=== PATIENT | female | born 1955 | race Caucasian/White ===

== ENCOUNTER → 2017-03-24 | Day surgery (SDC) | payer OTHER, MEDICARE ==
[~2017-03-24] VITALS: Ht 175.3 cm; Wt 52.2 kg
[~2017-03-24] MED LIST: 0.9% Sodium Chloride 1,000 ML IV SCH; ACET325T51 PO; AMLO10TA3 PO; FERR325C PO; Lactated Ringer's 1,000 ML IV ONE; METO-272 PO; OMEP20TA86 PO; Propofol 10,000 mCg/mL 20 mL Inj ONE; RANI150C4 PO; Sodium Chloride LOK Flush 10 mL Syringe IV PRN; fentaNYL-PF 50 mCg/mL 2 mL Inj IVPUSH PRN; fentaNYL-PF 50 mCg/mL 2 mL Inj ONE
[2017-03-24 15:19] VITALS: BP 128/69; PULSE 56; RESP 16; O2SAT 100
--- NOTE | 2017-03-24 16:01 | PCM.HPANE ---
Patient Data Surgeon Admitting Provider: Attending Provider:Rosanne Anguiano MD Primary Care Physician:Clinic,[facility] Residency Other Provider:Ramakrishna Vogt Anesthesia Reason for Visit Pyloric Stricture Ht/WT & BMI Height (Feet): 5 Height (Inches): 9 Weight (Kilograms): 52.2 Body Mass Index 17.00 Allergies Coded Allergies: Sulfa (Sulfonamide Antibiotics) (Verified Allergy, Unknown, 08/18/16) Uncoded Allergies: SULFA (Allergy, Unknown, N/V, 07/14/09) Past Anesthesia History Anesthesia History: Denies:: Abnormal Airway, Anesthesia Reactions, Difficult Intubation, Fam Anesthesia Reaction, Fam Malignant Hypertherm, Malignant Hyperthermia Diabetes History Hx Diabetes?: No MRSA MRSA: No Medications Home Meds Incl Beta Homer: Yes Date Beta Homer Taken: Mar 24, 2017 Time Beta Homer Taken: 0700 Reported Medications Metoprolol Succinate ER 50 Mg Tab.er.24h50 Mg PO BID Ref 0 07/27/16 Omeprazole 20 Mg Tablet.dr40 Mg PO DAILY 04/27/16 Acetaminophen 325 Mg Nevtaq048 Mg PO TID PRN For Pain Ref 0 04/21/16 Amlodipine 10 Mg Ktnvqo85 Mg PO DAILY Ref 0 04/20/16 Discontinued Reported Medications Ferrous Sulfate (Iron)325 Mg Capsule.er325 Mg PO TIDWM 08/18/16 Ranitidine 150 Mg Rlialup157 Mg PO HS Ref 0 07/27/16 History History of ENT Problems?: No HEENT History: Positive for:: Dysphagia Hearing Problem Denies:: Abnormal Airway Difficult Intubation Denture Type: None Teeth Condition: Within Normal Limits Hx of Heart Problems?: Yes Cardiovascular History: Positive for:: Hypertension Denies:: AICD Atrial Fibrillation Chest Pain Pacemaker Valvular Heart Disease Hx of Respiratory Problem?: No Respiratory History: Positive for:: Pneumonia (HX) Denies:: Asthma COPD Cough Hemoptysis Tuberculosis Hx Neurologic Problems?: No Neurological History: Denies:: CVA Hx of GI Problems?: Yes Hx of Problems?: Yes Female Hx: Denies:: Currently Hx Musculoskeletal Problems?: No Musculoskeletal History: Denies:: Fibromyalgia Joint Replacement Psycho Social History: Denies:: Anxiety Hx Depression Hx Surgeries?: Yes (HYSTERECTOMY,TONSILS) Hx Any Other Health Problems?: Yes Hx Diabetes: No Hx Alcohol Use: NoHx Substance Use: Yes Smoking Status: Light Tobacco Smoker Have You Smoked inLast 12 mo: Yes Stop/Bang Treated for Sleep Apnea?: No Do You Have a CPAP Machine?: No S-Snoring: Do You Snore Loudly: No T-Tired: feel tired, fatigued: No O-Obsered: Observed not breath: No P-Blood Pressure: treated: Yes B- Body Mass Index > 35 kg/m2: No A- Age over 50: Yes N- Neck Large Circumference: No G- Gender Male: No JAZZMINE Total Score: 2 Risk Assessment Category Category 1A: Patient has history of documented sleep apnea, and HAS NOT received any narcotic, sedative or anesthesia administration during this stay. Category 1B: Patient has history of documented sleep apnea, and HAS received any narcotic , sedative or anesthesia administration during this stay Category 2: Patient has SUSPECTED Obstructive Sleep Apnea, and HAS received any narcotic , sedative or anesthesia administration during this stay. Category 3: Patient has SUSPECTED Obstructive Sleep Apnea and HAS NOT received narcotic, sedative or anesthesia administration during this stay. Category 4: Outpatient in Procedural Areas with known sleep apnea or who screen positive for High Risk via the STOP/BANG questionnaire. Exam Exam Vital Signs Vital Signs Date Time Temp Pulse Resp B/P Pulse Ox O2 Delivery O2 Flow Rate FiO2 03/24/17 15:19 36.8 56 16 128/69 100 Room Air General Appearance: Alert, Oriented X3, Cooperative, No Acute Distress HEENT/AIRWAY: MP 2 Lungs: Clear to Auscultation Heart: Exam Unremarkable Plan Impression Patient chart reviewed, patient interviewed and anesthestic plan with risks, benefits, and alternatives discussed, and informed consent obtained. ASA Physical Status: ASA3 Severe Disease Anesthetic Plan: MAC Bene/Risks/Altern/Consents: Yes HP Complete Prior to Induction: Yes Ector Lopez MD Mar 24, 2017 16:01
[2017-03-24 16:18] VITALS: BP 100/55; PULSE 63; RESP 15; O2SAT 100
[2017-03-24 16:28] VITALS: BP 118/66; PULSE 56; RESP 16; O2SAT 99
--- NOTE | 2017-03-24 17:05 | PCM.ANEP1 ---
Post Anesthesia PACU Phase 1 Assessment Vital Signs Vital Signs Date Time Temp Pulse Resp B/P Pulse Ox O2 Delivery O2 Flow Rate FiO2 03/24/17 16:28 56 16 118/66 99 Room Air 03/24/17 16:18 63 15 100/55 100 Room Air 03/24/17 15:19 36.8 56 16 128/69 100 Room Air Anesthetic Administered: MAC Level of Alertness: Sleepy, easy to arouse MAYEN's with Equal Strength: Yes Pain: No Nausea or Vomiting: No CV Function & Hydration Stable: Yes Airway Device: Oxygen Delivery: Room Air Lungs: Clear to Auscultation Dermatome Level: Full Sensation PACU Phase 2 Assessment Complications: No Patient Instructions Provided: N/A Ector Lopez MD Mar 24, 2017 17:05
--- NOTE | 2017-03-24 18:55 | ENDO ---
[address] [address] ENDOSCOPY PROCEDURE PATIENT: ANALI BETH : 1955 MR#: [id number] ADMIT: 03/24/2017 JOB ID: [id number] DATE: 03/24/2017 PROCEDURE: Esophagogastroduodenoscopy (EGD). INDICATION: Epigastric pain. Patient with a history of pyloric stenosis for which she has had multiple balloon dilations as well as pyloric stent placement. Her laboratories also indicate an iron deficiency anemia. ANESTHESIA: Please see anesthesia note for details regarding ASA classification, Mallampati score, and medications. INSTRUMENT USED: GIF H 180 J. PROCEDURE DETAILS: After informed consent was obtained, the patient was brought into the GI suite, where she was placed on oxygen via nasal cannula and monitored with continuous pulse oximeter, telemetry, and blood pressure monitoring. A time-out was performed, then she was placed in the left lateral decubitus position and medications were administered for sedation. A bite block was placed. The standard esophagogastroduodenoscopy scope was inserted through the bite block and advanced to the pylorus. Beyond the pylorus I was unable to advance the scope secondary to a stricture. On the inferior margin of the pylorus there was what appeared to be a clean based ulcer. An attempt to balloon dilate was not performed as the patient has failed balloon dilation in the past. FINDINGS: 1. Multiple random biopsies were obtained throughout the antrum and body. 2. Retroflexed views in the gastric body revealed a normal-appearing cardia and fundus. 3. Normal-appearing gastroesophageal junction with a slightly irregular Z-line. 4. Normal appearing esophagus. IMPRESSION: Pyloric stricture. RECOMMENDATIONS: 1. Will obtain a CT of the abdomen to rule out any extrinsic mass effect. 2. Referral back to [facility] for consideration for possible attempt at stent placement. The findings were discussed with the patient and her . Additionally, I recommended the patient start iron 325 mg twice a day and continue Protonix 40 mg p.o. b.i.d. The patient knows to avoid NSAIDs. Also smoking cessation was encouraged. COMPLICATIONS: None. ESTIMATED BLOOD LOSS: Less than 5 mL.
--- NOTE | 2017-03-30 09:33 | PATH ---
SURGICAL PATHOLOGY Attending Physician:Lydia Ayala CASE STATUS: Signed Out PATIENT NAME: ANALI BETH PID: [id number] : 1955 DATE COLLECTED:03/24/2017 00:00 SPECIMEN: Gastric, Biopsy CLINICAL HISTORY: 1). RANDOM GASTRIC - R/O H.PYLORI FINAL DIAGNOSIS: 1.RANDOM GASTRIC BIOPSIES: REACTIVE GASTROPATHY, ANTRAL MUCOSA. Negative for intestinal metaplasia. Negative for Helicobacter organisms by immunohistochemical stains. Negative for dysplasia and malignancy. ICD10 K29.70 GROSS DESCRIPTION: Received in formalin, labeled with the patient' s name and "random gastric", are three fragments of church, soft tissue ranging in size from 0.1 x 0.1 x 0.1 cm to 0.2 x 0.1 x 0.1 cm. All fragments are totally submitted in one cassette. ([id number]) MICRO DESCRIPTION: Sections are of gastric antral mucosa with morphologic changes of reactive gastropathy. No intestinal metaplasia is identified. Immunohistochemical stains are performed to rule out Helicobacter pylori organisms. The patient tissue is stained with monoclonal antibody to Helicobacter pylori (SP48). Positive and negative controls stain appropriately. Result: The gastric mucosa is negative for Helicobacter staining. Interpretation: The gastric mucosa is negative for Helicobacter pylori by immunohistochemical stains. This test was developed and its performance characteristics determined by [facility]. It has not been cleared or approved by the [place]. Food and Drug Administration. The FDA has determined that such clearance or approval is not necessary. This test is used for clinical purposes. It should not be regarded as investigational or for research. ICD-9 CODES: CPT CODES: 1: 52402, 48854 Electronically Signed Out Cora Vela MD [facility] [address], [place] [address] Technical component performed at [facility], [facility] [address], [place], [address]
== END | disposition home or self-care (01) ==
LOC: END 00:19
PROVIDERS: ATTEND Internal Medicine Gastroenterology
DX: K31.1 Adult hypertrophic pyloric stenosis (principal); K29.70 Gastritis, unspecified, without bleeding; D50.9 Iron deficiency anemia, unspecified; R10.33 Periumbilical pain; R19.7 Diarrhea, unspecified; I12.9 Hypertensive chronic kidney disease with stage 1 through stage 4 chronic kidney disease, or unspecified chronic kidney disease; N18.3 Chronic kidney disease, stage 3 (moderate); F17.210 Nicotine dependence, cigarettes, uncomplicated; Z90.710 Acquired absence of both cervix and uterus
CPT/HCPCS: 43239; J3010; J7120